=== PATIENT | female | born 1980 | race Caucasian/White ===

== ENCOUNTER → 2025-04-06 | Outpatient (CLI) | payer MEDICAID ==
[~2025-04-06] MED LIST: CYCL-1 PO; IBUP-1984 PO
--- NOTE | 2025-04-06 22:25 | VASCULAR REPORT ---
EXAM: VASC VL VENOUS Clinical History: Bilateral lower extremity pain Comparison: None Technique: Duplex Doppler evaluation of the deep venous systems of both lower extremities from the co mmon femoral veins to the popliteal veins including color Doppler and spectral/pulsed waveform analys is was performed. Findings: RIGHT SIDE: The common femoral vein demonstrates appropriate compressibility and waveform variability . There is compressibility/patency of the great saphenous vein at the proximal thigh . The femoral vein demonstrates appropriate compressibility and waveform variability . The deep femoral vein demonstrates appropriate compressibility and waveform variability . The popliteal vein demonstrates appropriate compressibility and waveform variability . There is color flow at the tibioperoneal trunk and in the posterior tibial vein. LEFT SIDE: The common femoral vein demonstrates appropriate compressibility and waveform variability . There is compressibility/patency of the great saphenous vein at the proximal thigh . The femoral vein demonstrates appropriate compressibility and waveform variability . The deep femoral vein demonstrates appropriate compressibility and waveform variability . The popliteal vein demonstrates appropriate compressibility and waveform variability . There is color flow at the tibioperoneal trunk and in the posterior tibial vein. Impression: 1. No right or left femoropopliteal venous thrombosis.
== END | disposition home or self-care (01) ==
LOC: VAS 12:23
PROVIDERS: ATTEND Family Medicine
DX: M79.669 Pain in unspecified lower leg (principal)
CPT/HCPCS: 93970

== ENCOUNTER 2025-07-17 09:27 | Emergency (ER) | payer MEDICAID ==
[~2025-07-17] VITALS: Ht 167.6 cm; Wt 90.0 kg
[2025-07-17 09:31] VITALS: TEMP 98.5
--- NOTE | 2025-07-17 10:53 | Physician Documentation ---
History of Present Illness ~ Chief Complaint: Leg Pain Stated Complaint: L KNEE PAIN Time Seen by MD: 10:25 Primary Medical Doctor: [facility] HPI Female with a history of bilateral lower extremity swelling for the last two months complains of left knee pain and radiating pain down her left leg states that burning in nature. She also states that she has lower back pain. She says the proximally two months ago she slipped and fell on a roof thinking that she internally injuring her knee. States that she has been evaluated for claudication and varicose veins previously, but that was months ago. Denies history of blood thinners or DVT. Denies chest pain or shortness of Tetanus witin 5 years: Yes Medication Reconciliation Allergies: Coded Allergies: Antihistamines - Alkylamine (Verified Allergy, Unknown, 07/17/25) amoxicillin (Verified Allergy, Unknown, 07/17/25) ampicillin (Verified Allergy, Unknown, 07/17/25) phenobarbital (Verified Allergy, Unknown, 07/17/25) Scheduled Cyclobenzaprine* (Cyclobenzaprine*), 1 TAB PO TID Ibuprofen* (Motrin*), 800 MG PO TID Past Medical History Past Medical History: UTI Past Surgical History: , tubal ligation Alcohol Use: Occasionally Drug Use: none Lives with: Family Lives In: Home Occupation: unemployed Review of Systems All Other Systems at this time: Reviewed and Negative ROS As stated above in the HPI, otherwise all systems are reviewed and negative. Physical Exam Vital Signs: Temperature: 98.5, Source: Temporal, Heart Rate: 100, Respiratory Rate: 16, BP: 122/86, Pulse Oximetry: 99, Weight: 90.000 Oxygen Flow Rate: 0 Physical Exam General: Alert, no apparent distress. HEENT: PERRL, EOMI, no injection, moist mucous membranes. Neck: Full range of motion. Respiratory: Lungs clear, no respiratory distress. Chest: No accessory muscle use. Cardiovascular: Regular rate and rhythm, no murmurs. Gastrointestinal: Soft, nontender, nondistended. Bowels sounds present. Extremities: Normal range of motion, no deformity. Notable varicose veins bilaterally negative Altagracia's test. Neurologic: Oriented x4. Psychiatric: Normal mood and affect. Skin: Normal color, warm and dry. No edema, no ecchymosis. 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 Based on my physical exam I do not have a high suspicion of internal left knee derangement however she needs to follow up in the outpatient setting for further evaluation Knee Diff Dx:Considerations: Include: Abrasion, Arthritis, Contusion, DJD, Fracture-femur, Fracture-fibula, Fracture-patella, Fracture-tibia, Gout, Hematoma, Laceration, Meniscus injury, Neurovascular injury, Open fracture, Rheumatoid arthritis, Septic, Sprain, Sprain-MCL, Sprain-LCL, Sprain-ACL, Sprain-PCL, Other Departure Disposition: 01 HOME / SELF CARE / HOMELESS Impression: Primary Impression: Sciatica Additional Impression: Knee pain Condition: Stable Discharge Instructions: Sciatica Additional Instructions: I am recommending that she follow up in the outpatient setting as you did not present with a DVT today. You need to follow up with your primary care or urgent care for further evaluation of your back pain and knee pain. You do have a small Kennedy's cyst which is likely not causing your symptoms in the back of your left knee Referrals: NO PRIMARY CARE PROVIDER (PCP) Signature Scribe Signature: f Attestation: Scribed for Abebe Roland Anatomic Pathology Assistant by Abebe Pringle NP . 07/17/25 11:23 ABEBE ROLAND NP Jul 17, 2025 10:53
--- NOTE | 2025-07-17 11:51 | VASCULAR REPORT ---
Left lower extremity venous duplex Clinical History: Lower extremity swelling Comparison: VASC VL VENOUS on DOS: 04/06/25 Technique: Duplex Doppler evaluation of the deep venous system of the left lower extremity from the common femor al vein to the popliteal vein including color Doppler and spectral/pulsed waveform analysis was perfo rmed. Findings: The common femoral vein demonstrates appropriate compressibility and waveform variability. There is compressibility/patency of the great saphenous vein at the proximal thigh. The femoral vein demonstrates appropriate compressibility and waveform variability. The deep femoral vein demonstrates appropriate compressibility and waveform variability. The popliteal vein demonstrates appropriate compressibility and waveform variability. There is normal compressibility at the tibioperoneal trunk. Impression: No left femoropopliteal venous thrombosis. Contralateral common femoral vein is patent. Left popliteal fossa cyst measures 1.2 cm.
[2025-07-17 13:09] VITALS: BP 128/82; PULSE 85; RESP 16; O2SAT 100
== END 2025-07-17 11:42 | disposition home or self-care (01) ==
LOC: ER 09:28
DX: M54.32 Sciatica, left side (principal); M25.562 Pain in left knee; Z72.89 Other problems related to lifestyle; Z56.0 Unemployment, unspecified; Z98.51 Tubal ligation status; Z88.1 Allergy status to other antibiotic agents; Z79.899 Other long term (current) drug therapy; Z88.8 Allergy status to other drugs, medicaments and biological substances; Z87.440 Personal history of urinary (tract) infections
CPT/HCPCS: 93971; 99284